=== PATIENT | female | born 1980 | race Caucasian/White ===

== ENCOUNTER 2019-12-29 16:49 | Emergency (ER) | payer BC ==
--- NOTE | 2019-12-29 18:02 | CT ---
EXAM DESCRIPTION: Lower Extremity CLINICAL HISTORY: 39 years Female eval patellar complex, ct knee COMPARISON: None. TECHNIQUE: Contiguous axial CT images obtained through the knee without IV contrast. Reformatted images obtained. This exam was performed according to our department optimization program which includes automated exposure control, adjustment of the mA and/or kv according to patient size and/or use of iterative reconstruction technique. FINDINGS: There is fragmentation along the medial aspect of the patella consistent with acute fracture. There is a small to moderate amount of fluid in the joint space. Fracture is not significantly displaced. No additional fracture is noted. IMPRESSION: Small avulsion fractures off the medial and inferior aspect of the patella with associated joint effusion If indicated further evaluation with MRI could be acquired to evaluate the patellar retinacula Electronically signed by: Karla Craig MD 12/29/2019 6:01 PM CDT
[2019-12-29] MEDS ORDERED: IBUPROFEN 200 MG TAB PO ONE (18:07)
[2019-12-29] MEDS ORDERED: HYDROcodone 7.5MG/APAP 325MG 1 EA TAB PO ONE (18:07)
--- NOTE | 2019-12-29 18:10 | ED.PDOC ---
History of Present Illness - General Chief Complaint: General Stated Complaint: Left knee pain, and swelling Time Seen by Provider: 12/29/19 16:58 Source: patient Exam Limitations: no limitations - History of Present Illness Initial Comments: The patient is a 39-year-old female presented emergency room secondary to having had her patella dislocating. The patient had this occur while she was walking up an embankment. This has occurred to her knees one time in the past. There is no dislocation currently. She is neurovascularly intact. There is tenderness to palpation surrounding the patella. Patellar complex appears to be intact. No evidence of any bruising. No lacerations. Timing/Duration: momentarily Severity: severe Improving Factors: nothing Worsening Factors: movement Associated Symptoms: denies symptoms Allergies/Adverse Reactions: Allergies Sulfa Antibiotics Allergy (Verified 12/29/19 17:11) Home Medications: Ambulatory Orders Bupropion HCl [Wellbutrin Xl] 150 mg PO 12/29/19 Buspirone HCl [Buspirone Hydrochloride] 7.5 mg PO 12/29/19 Duloxetine HCl 60 mg PO 12/29/19 Levothyroxine Sodium 112 mcg PO 12/29/19 Metronidazole 500 mg PO DAILY 12/29/19 Tramadol HCl 50 mg PO Q8HR PRN #20 tab 12/29/19 Valacyclovir HCl [Valacyclovir Hydrochlorid] 500 mg PO 12/29/19 Review of Systems - Review of Systems Constitutional: States: no symptoms reported EENTM: States: no symptoms reported Respiratory: States: no symptoms reported Cardiology: States: no symptoms reported Gastrointestinal/Abdominal: States: no symptoms reported Genitourinary: States: no symptoms reported Musculoskeletal: States: joint pain, muscle pain Skin: States: no symptoms reported Neurological: States: no symptoms reported Endocrine: States: no symptoms reported All other Systems: No Change from Baseline Past Medical History (General) - Patient Medical History Hx Seizures: No Hx Stroke: No Hx Dementia: No Hx Asthma: No Hx of COPD: No Hx Cardiac Disorders: No Hx Congestive Heart Failure: No Hx Pacemaker: No Hx Hypertension: Yes Hx Thyroid Disease: Yes Hx Diabetes: No Hx Gastroesophageal Reflux: No Hx Renal Disease: No Hx Cancer: No Hx of HIV: No Hx Hepatitis C: No Hx MRSA: No - Vaccination History Hx Tetanus, Diphtheria Vaccination: No Hx Influenza Vaccination: Yes - Social History Hx Tobacco Use: Yes Hx Alcohol Use: Yes - Female History Patient is a Female of Child Bearing Age (10 -59 yrs old): Yes Family Medical History - Family History Mother Family History: Unknown Living Status: Unknown Physical Exam - Physical Exam General Appearance: Alert, Obvious distress Eye Exam: bilateral normal Ears, Nose, Throat: hearing grossly normal, normal pharynx Neck: full range of motion, supple Respiratory: no respiratory distress, no accessory muscle use Cardiovascular/Chest: normal peripheral pulses, no edema Peripheral Pulses: dorsalis pedis,right: 2+, dorsalis pedis,left: 2+, posterior tibialis,right: 2+, posterior tibialis,left: 2+ Rectal Exam: deferred Extremity: no pedal edema, no calf tenderness, normal capillary refill, other - See history of present illness. Normal passive range of motion. Neurologic: economic specialist II-XII nml as tested, alert, normal mood/affect, oriented x 3 Skin Exam: normal color Comments: Vital Signs - 8 hr 12/29/19 17:26 Temperature 99.0 F Pulse Rate [ 72 Left Radial] Respiratory 20 Rate Blood Pressure 156/97 [Right Arm] O2 Sat by Pulse 99 Oximetry Progress - Progress Progress: 12/29/19 18:11 The patient is a 39-year-old female presents emergency room after having had a patellar dislocate and reduce prior to arrival. CT scan shows a small avulsion fracture off the patella. The patient is going to be placed on crutches with a knee immobilizer. She will be written for tramadol for pain control and can take 2 Aleve twice a day for the next week or so as well. She does need to follow-up with orthopedics to review the CT scan to make sure she does not need any further surgical intervention to prevent another episode as she has had 1 in the past already. ER warnings were given. luisana white [phone] [facility] consulted - Results/Orders Results/Orders: CT scan of the left knee shows small evulsion fracture at the medial inferior aspect. There is an associated mild hematoma. - EKG/XRAY/CT CT Ordered: Yes Departure - Departure Clinical Impression: Closed patellar dislocation Qualifiers: Encounter type: initial encounter Laterality: left Qualified Code(s): S83.005A - Unspecified dislocation of left patella, initial encounter Disposition: Discharge to Home or Self Care Condition: Fair Departure Forms: ED Discharge - Pt. Copy, Patient Portal Self Enrollment Diet: regular diet Activity: no pushing/pulling with affected limb Prescriptions: Tramadol HCl 50 mg PO Q8HR PRN #20 tab PRN Reason: Moderate Pain Home Medications: Ambulatory Orders Bupropion HCl [Wellbutrin Xl] 150 mg PO 12/29/19 Buspirone HCl [Buspirone Hydrochloride] 7.5 mg PO 12/29/19 Duloxetine HCl 60 mg PO 12/29/19 Levothyroxine Sodium 112 mcg PO 12/29/19 Metronidazole 500 mg PO DAILY 12/29/19 Tramadol HCl 50 mg PO Q8HR PRN #20 tab 12/29/19 Valacyclovir HCl [Valacyclovir Hydrochlorid] 500 mg PO 12/29/19 Additional Instructions: =The patient is a 39-year-old female presents emergency room after having had a patellar dislocate and reduce prior to arrival. CT scan shows a small avulsion fracture off the patella. The patient is going to be placed on crutches with a knee immobilizer. She will be written for tramadol for pain control and can take 2 Aleve twice a day for the next week or so as well. She does need to follow-up with orthopedics to review the CT scan to make sure she does not need any further surgical intervention to prevent another episode as she has had 1 in the past already. ER warnings were given.
[2019-12-29 18:53] VITALS: BP 135/94; TEMP 98.6; O2SAT 100
== END 2019-12-29 18:44 | disposition home or self-care (01) ==
LOC: ER 16:49
DX: S83.005A Unspecified dislocation of left patella, initial encounter (principal); I10 Essential (primary) hypertension; F17.200 Nicotine dependence, unspecified, uncomplicated; X58.XXXA Exposure to other specified factors, initial encounter; Y92.9 Unspecified place or not applicable; Y93.01 Activity, walking, marching and hiking